=== PATIENT | female | born 1960 | race Caucasian/White ===

== ENCOUNTER 2019-12-22 16:43 | Emergency (ER) | payer MEDICARE, OTHER ==
[2019-12-22] MEDS ORDERED: Sodium Chloride 0.9% 10 ML Syringe FLUSH PRN (17:14)
--- NOTE | 2019-12-22 17:58 | CR ---
Chest: Portable view of the chest was obtained. Comparison: No prior chest imaging. Heart is enlarged. Pulmonary vessels are mildly congested. Lungs otherwise are clear. Bony structures are grossly intact. Impression: 1. Findings suspicious for mild CHF. Diagnostic code #3 This report was dictated in MDT
[2019-12-22] MEDS ORDERED: Furosemide 40 MG/4 ML VIAL IVPUSH ONE (18:00)
--- NOTE | 2019-12-22 18:30 | EDM.PDOC ---
ED HPI GENERAL MEDICAL PROBLEM - General Chief Complaint: Cardiovascular Problem Stated Complaint: SWOLLEN ANKLES Time Seen by Provider: 12/22/19 16:54 Source of Information: Reports: Patient, RN Notes Reviewed - History of Present Illness INITIAL COMMENTS - FREE TEXT/NARRATIVE: 59 yr old female comes in with bilat leg edema that first started about a week ago. She has not had this happen in the past. No chest pain. Mild dyspnea with exertion the last few days. No cough, fever or chills. No abd pain, nausea or vomtiing. she does have hx of Htn. Right Hip Pain Score (Numeric/FACES): 8 - Related Data Allergies Allergy/AdvReac Type Severity Reaction Status Date / Time acetaminophen [From Vicodin] Allergy Severe Airway Verified 12/22/19 17:00 Tightness hydrocodone [From Vicodin] Allergy Severe Airway Verified 12/22/19 17:00 Tightness simvastatin [From Zocor] Allergy Severe Swelling Verified 12/22/19 17:00 sulfamethoxazole Allergy Severe Nausea Verified 12/22/19 16:59 [From Bactrim] trimethoprim [From Bactrim] Allergy Severe Nausea Verified 12/22/19 16:59 Home Meds: Home Meds Furosemide 40 mg PO DAILY #20 tablet 12/22/19 [Rx] Lisinopril/Hydrochlorothiazide [Lisinopril-Hctz 10-12.5 mg Tab] 10 - 12.5 mg PO DAILY 12/22/19 [History] Metoprolol Succinate [Toprol XL] 25 mg PO DAILY 12/22/19 [History] Omeprazole 20 mg PO DAILY 12/22/19 [History] Pravastatin [Pravachol] 20 mg PO DAILY 12/22/19 [History] metFORMIN [Glucophage] 500 mg PO DAILY 12/22/19 [History] Past Medical History Cardiovascular History: Reports: High Cholesterol, Hypertension 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 History: Reports: GERD 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: 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 Neurological History: Reports: Vertigo Endocrine/Metabolic History: Reports: Other (See Below) Other Endocrine/Metabolic History: pre diabetic - Infectious Disease History Infectious Disease History: Reports: Chicken Pox - Past Surgical History GI Surgical History: Reports: Cholecystectomy Female Surgical History: Reports: Hysterectomy Social & Family History - Tobacco Use Smoking Status *Q: Never Smoker - Caffeine Use Caffeine Use: Reports: Coffee - Recreational Drug Use Recreational Drug Use: No ED ROS GENERAL - Review of Systems Review Of Systems: See Below Constitutional: Denies: Fever, Chills, Diaphoresis HEENT: Reports: No Symptoms Respiratory: Reports: Shortness of Breath. Denies: Cough Cardiovascular: Reports: Edema. Denies: Chest Pain Endocrine: Reports: Fatigue GI/Abdominal: Denies: Abdominal Pain, Nausea, Vomiting Musculoskeletal: Denies: Shoulder Pain, Arm Pain, Back Pain Skin: Reports: No Symptoms Neurological: Reports: No Symptoms ED EXAM, GENERAL - Physical Exam Exam: See Below General Appearance: Alert, No Apparent Distress Head: Atraumatic Neck: Supple Respiratory/Chest: No Respiratory Distress, Lungs Clear, Normal Breath Sounds. No: Rales, Rhonchi, Wheezing Cardiovascular: Regular Rate, Rhythm GI/Abdominal: Soft, Non-Tender Extremities: Pedal Edema (mild bilat). No: Leg Pain, Increased Warmth, Redness Neurological: Alert, Oriented, No Motor/Sensory Deficits Skin Exam: Warm, Dry, Normal Color EKG INTERPRETATION EKG Date: 12/22/19 Rhythm: NSR [place]: Normal P-Wave: Present QRS: Normal ST-T: Normal Course - Vital Signs Last Recorded V/S: Last Vital Signs Temp 98.1 F 12/22/19 17:05 Pulse 76 12/22/19 17:05 Resp 20 12/22/19 17:05 BP 140/80 12/22/19 17:05 Pulse Ox 98 12/22/19 17:05 - Orders/Labs/Meds Orders: Active Orders 24 hr Category Date Time Status EKG 12 Lead [EKG Documentation Completion] [RC] STAT Care 12/22/19 17:15 Active Peripheral IV Care [RC] . DIRECTED Care 12/22/19 17:14 Active Sodium Chloride 0.9% [Saline Flush] Med 12/22/19 17:14 Active 10 ml FLUSH ASDIRECTED PRN Peripheral IV Insertion Adult [OM.PC] Stat Oth 12/22/19 17:14 Ordered Medication Orders Sodium Chloride (Saline Flush) 10 ml FLUSH ASDIRECTED PRN PRN Reason: Keep Vein Open Last Admin: 12/22/19 17:48 Dose: 10 ml Documented by: YAEL Labs: Laboratory Tests 12/22/19 12/22/19 12/22/19 Range/Units 17:30 17:30 17:30 WBC 8.40 (3.98-10.04) K/mm3 RBC 4.69 (3.98-5.22) M/mm3 Hgb 13.8 (11.2-15.7) gm/dl Hct 43.1 (34.1-44.9) % MCV 91.9 (79.4-94.8) fl MCH 29.4 (25.6-32.2) pg MCHC 32.0 L (32.2-35.5) g/dl RDW Std Deviation 42.8 (36.4-46.3) fL Plt Count 265 (182-369) K/mm3 MPV 10.3 (9.4-12.3) fl Neut % (Auto) 73.5 H (34.0-71.1) % Lymph % (Auto) 18.3 L (19.3-51.7) % [place] % (Auto) 6.4 (4.7-12.5) % Eos % (Auto) 1.3 (0.7-5.8) Baso % (Auto) 0.4 (0.1-1.2) % Neut # (Auto) 6.17 H (1.56-6.13) K/mm3 Lymph # (Auto) 1.54 (1.18-3.74) K/mm3 [place] # (Auto) 0.54 H (0.24-0.36) K/mm3 Eos # (Auto) 0.11 (0.04-0.36) K/mm3 Baso # (Auto) 0.03 (0.01-0.08) K/mm3 Sodium 140 (136-145) mEq/L Potassium 3.5 (3.5-5.1) mEq/L Chloride 102 (98-107) mEq/L Carbon Dioxide 26 (21-32) mEq/L Anion Gap 15.5 H (5-15) BUN 14 (7-18) mg/dL Creatinine 0.9 (0.55-1.02) mg/dL Est Cr Clr Drug Dosing 52.57 mL/min Estimated GFR (MDRD) > 60 (>60) mL/min BUN/Creatinine Ratio 15.6 (14-18) Glucose 113 H (74-106) mg/dL Calcium 9.4 (8.5-10.1) mg/dL Total Bilirubin 0.4 (0.2-1.0) mg/dL AST 17 (15-37) U/L ALT 31 (14-59) U/L Alkaline Phosphatase 81 (46-116) U/L NT-Pro-B Natriuret Pep 227 H (0-125) pg/mL Total Protein 7.7 (6.4-8.2) g/dl Albumin 3.8 (3.4-5.0) g/dl Globulin 3.9 gm/dL Albumin/Globulin Ratio 1.0 (1-2) Meds: Medications Generic Name Dose Route Start Last Admin Trade Name Freq PRN Reason Stop Dose Admin Sodium Chloride 10 ml 12/22/19 17:14 12/22/19 17:48 Saline Flush FLUSH 10 ml ASDIRECTED PRN Administration Keep Vein Open Discontinued Medications Generic Name Dose Route Start Last Admin Trade Name Freq PRN Reason Stop Dose Admin Furosemide 40 mg 12/22/19 18:00 12/22/19 18:08 Lasix IVPUSH 12/22/19 18:01 40 mg NOW ONE Administration - Re-Assessments/Exams Free Text/Narrative Re-Assessment/Exam: 12/22/19 19:04 CXR does show mild cardiomegally and mild pul omari. Have given lasix 40 mg IV. She has already voided several times. Sats are good. She states she "feels better already". Discharge instr. as documented. Departure - Departure Time of Disposition: 18:41 Disposition: Home, Self-Care 01 Condition: Fair Clinical Impression: Fluid retention Congestive heart failure (CHF) Qualifiers: Heart failure chronicity: acute Prescriptions: Furosemide 40 mg PO DAILY #20 tablet Instructions: Heart Failure, Self Care, [id number] Referrals: Maylin Grace MD [Primary Care Provider] - Forms: ED Department Discharge Additional Instructions: You have been given lasix or furosemide 40 mg IV here in the ED. That is your full dosage for today. Furosemide 40 mg Q AM for now. Prescription has been sent to [facility]. Once your leg edema is gone it may be reasonable to go to 20 mg Q AM, time will tell what will be an appropriate maintenance dosage for you. See Dr Grace [facility] in about about 5 to 7 days, call for appt. Keep a daily weight log. Return to ED as needed if symptoms worsening in any way. Sepsis Event Note (ED) - Evaluation Sepsis Screening Result: No Definite Risk - Focused Exam Vital Signs: Vital Signs Temp Pulse Resp BP Pulse Ox 12/22/19 17:05 98.1 F 76 20 140/80 98 - My Orders Last 24 Hours: My Active Orders 12/22/19 17:14 Peripheral IV Care [RC] . DIRECTED Sodium Chloride 0.9% [Saline Flush] 10 ml FLUSH ASDIRECTED PRN Peripheral IV Insertion Adult [OM.PC] Stat 12/22/19 17:15 EKG 12 Lead [EKG Documentation Completion] [RC] STAT - Assessment/Plan Last 24 Hours: My Active Orders 12/22/19 17:14 Peripheral IV Care [RC] . DIRECTED Sodium Chloride 0.9% [Saline Flush] 10 ml FLUSH ASDIRECTED PRN Peripheral IV Insertion Adult [OM.PC] Stat 12/22/19 17:15 EKG 12 Lead [EKG Documentation Completion] [RC] STAT
== END 2019-12-22 19:00 | disposition home or self-care (01) ==
LOC: JD.ED 16:43
DX: I11.0 Hypertensive heart disease with heart failure (principal); I50.9 Heart failure, unspecified; E78.00 Pure hypercholesterolemia, unspecified; K21.9 Gastro-esophageal reflux disease without esophagitis; Z88.6 Allergy status to analgesic agent; Z88.5 Allergy status to narcotic agent; Z88.8 Allergy status to other drugs, medicaments and biological substances; Z88.2 Allergy status to sulfonamides; Z88.1 Allergy status to other antibiotic agents; Z79.899 Other long term (current) drug therapy
CPT/HCPCS: 36415; 71045; 71045-26; 80053; 83880; 85025; 93005; 93010; 96374; 99284; 99285-25; J1940

== ENCOUNTER 2019-12-24 16:50 | Emergency (ER) | payer MEDICARE, OTHER ==
[2019-12-24] MEDS ORDERED: Ketorolac 30 MG/ML SDV IVPUSH ONE (17:18)
[2019-12-24] MEDS ORDERED: Metoclopramide 10 MG/2 ML SDV IVPUSH ONE (17:18)
[2019-12-24] MEDS ORDERED: Sodium Chloride 0.9% 10 ML Syringe FLUSH PRN (17:18)
[2019-12-24] MEDS ORDERED: diphenhydrAMINE 50 MG/ML SDV IVPUSH ONE (17:18)
[2019-12-24] MEDS ORDERED: Sodium Chloride 0.9% 1,000 ML IV ONE (17:18)
--- NOTE | 2019-12-24 17:34 | EDM.PDOC ---
ED HPI GENERAL MEDICAL PROBLEM - General Chief Complaint: General Stated Complaint: HEADACHE Time Seen by Provider: 12/24/19 17:09 Source of Information: Reports: Patient, Old Records, RN Notes Reviewed History Limitations: Reports: No Limitations - History of Present Illness INITIAL COMMENTS - FREE TEXT/NARRATIVE: Patient is a 59-year-old female who presents to the ED for the evaluation of her generalized feelings of being unwell. She notes that she was seen in this ER a few nights ago, and was found to have slight heart failure and started on 40 mg of Lasix daily. She states she has been taking this, roughly 3 doses since her discharge, she states everything was going well this morning, but this afternoon she just felt generally unwell, she cannot really put a finger on what is causing her the most issues, but states she does have a dull headache, to the frontal portion of her head off and on. She did take some Tylenol for this, but nothing seems to really be making it better. She does note that the swelling in her legs seems to be going down, and she did get an appointment with her primary care doctor for next week for a recheck and reevaluation. Patient's not having any chest pain, shortness of breath, nausea/vomiting/diarrhea, she is not having any sort of sense of impending doom, or any sort of heart palpitations that she can account for. She just feels off. Headache Pain Score (Numeric/FACES): 5 - Related Data Allergies Allergy/AdvReac Type Severity Reaction Status Date / Time acetaminophen [From Vicodin] Allergy Severe Airway Verified 12/24/19 17:13 Tightness hydrocodone [From Vicodin] Allergy Severe Airway Verified 12/24/19 17:13 Tightness simvastatin [From Zocor] Allergy Severe Swelling Verified 12/24/19 17:13 sulfamethoxazole Allergy Severe Nausea Verified 12/24/19 17:13 [From Bactrim] trimethoprim [From Bactrim] Allergy Severe Nausea Verified 12/24/19 17:13 Home Meds: Home Meds Furosemide 40 mg PO DAILY #20 tablet 12/22/19 [Rx] Lisinopril/Hydrochlorothiazide [Lisinopril-Hctz 10-12.5 mg Tab] 10 - 12.5 mg PO DAILY 12/22/19 [History] Metoprolol Succinate [Toprol XL] 25 mg PO DAILY 12/22/19 [History] Omeprazole 20 mg PO DAILY 12/22/19 [History] Pravastatin [Pravachol] 20 mg PO DAILY 12/22/19 [History] metFORMIN [Glucophage] 500 mg PO DAILY 12/22/19 [History] Aspirin [Ecotrin EC] 81 mg PO DAILY 12/24/19 [History] Calcium Carb/Vitamin D3/Vit K1 [Calcium + D Soft Chewable Tab] 1 tab PO DAILY 12/24/19 [History] Docusate Sodium [Colace] 50 mg PO DAILY 12/24/19 [History] Past Medical History Cardiovascular History: Reports: High Cholesterol, Hypertension 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 History: Reports: GERD 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 ED EXAM, GENERAL - Physical Exam Exam: See Below Exam Limited By: No Limitations General Appearance: Alert, WD/WN, No Apparent Distress Eye Exam: Bilateral Eye: EOMI, Normal Inspection, PERRL Ears: Normal External Exam Throat/Mouth: Normal Inspection, Normal Lips, Normal Teeth, Normal Gums, Normal Oropharynx, Normal Voice, No Airway Compromise Head: Atraumatic, Normocephalic Neck: Normal Inspection Respiratory/Chest: No Respiratory Distress, Lungs Clear, Normal Breath Sounds, Chest Non-Tender, Decreased Breath Sounds Cardiovascular: Normal Peripheral Pulses, Regular Rate, Rhythm, No Murmur, Other (1+ bilateral peripheral edema) Peripheral Pulses: 2+: Radial (L), Radial (R), Dorsalis Pedis (L), Dorsalis Pedis (R) GI/Abdominal: Normal Bowel Sounds, Soft, Non-Tender, No Distention, No Mass Extremities: Normal Inspection, Normal Capillary Refill, Pedal Edema (1+ bilateral peripheral edema) Neurological: Alert, Oriented, Normal Cognition, No Motor/Sensory Deficits Psychiatric: Normal Affect, Normal Mood Skin Exam: Warm, Dry, Intact, Normal Color, No Rash Course - Vital Signs Last Recorded V/S: Last Vital Signs Temp 96.8 F L 12/24/19 17:09 Pulse 76 12/24/19 17:09 Resp 18 12/24/19 17:09 BP 145/74 H 12/24/19 17:09 Pulse Ox 98 12/24/19 17:09 - Orders/Labs/Meds Orders: Active Orders 24 hr Category Date Time Status Peripheral IV Care [RC] . DIRECTED Care 12/24/19 17:19 Active Sodium Chloride 0.9% [Normal Saline] 1,000 ml Med 12/24/19 17:18 Active IV ASDIRECTED Sodium Chloride 0.9% [Saline Flush] Med 12/24/19 17:18 Active 10 ml FLUSH ASDIRECTED PRN Peripheral IV Insertion Adult [OM.PC] Routine Oth 12/24/19 17:19 Ordered Medication Orders Sodium Chloride (Normal Saline) 1,000 mls @ 150 mls/hr IV ASDIRECTED ONE Stop: 12/24/19 23:57 Last Admin: 12/24/19 17:34 Dose: 150 mls/hr Documented by: VADIM Sodium Chloride (Saline Flush) 10 ml FLUSH ASDIRECTED PRN PRN Reason: Keep Vein Open Last Admin: 12/24/19 17:36 Dose: 10 ml Documented by: VADIM Labs: Laboratory Tests 12/24/19 12/24/19 12/24/19 Range/Units 17:20 17:20 17:20 WBC 8.51 (3.98-10.04) K/mm3 RBC 4.91 (3.98-5.22) M/mm3 Hgb 14.4 (11.2-15.7) gm/dl Hct 44.0 (34.1-44.9) % MCV 89.6 (79.4-94.8) fl MCH 29.3 (25.6-32.2) pg MCHC 32.7 (32.2-35.5) g/dl RDW Std Deviation 41.4 (36.4-46.3) fL Plt Count 276 (182-369) K/mm3 MPV 10.3 (9.4-12.3) fl Neut % (Auto) 75.5 H (34.0-71.1) % Lymph % (Auto) 15.9 L (19.3-51.7) % [place] % (Auto) 7.1 (4.7-12.5) % Eos % (Auto) 1.1 (0.7-5.8) Baso % (Auto) 0.2 (0.1-1.2) % Neut # (Auto) 6.43 H (1.56-6.13) K/mm3 Lymph # (Auto) 1.35 (1.18-3.74) K/mm3 [place] # (Auto) 0.60 H (0.24-0.36) K/mm3 Eos # (Auto) 0.09 (0.04-0.36) K/mm3 Baso # (Auto) 0.02 (0.01-0.08) K/mm3 Sodium 132 L (136-145) mEq/L Potassium 3.3 L (3.5-5.1) mEq/L Chloride 93 L (98-107) mEq/L Carbon Dioxide 28 (21-32) mEq/L Anion Gap 14.3 (5-15) BUN 15 (7-18) mg/dL Creatinine 1.0 (0.55-1.02) mg/dL Est Cr Clr Drug Dosing 47.32 mL/min Estimated GFR (MDRD) 57 (>60) mL/min BUN/Creatinine Ratio 15.0 (14-18) Glucose 127 H (74-106) mg/dL Calcium 9.5 (8.5-10.1) mg/dL Magnesium 1.9 (1.8-2.4) mg/dl Total Bilirubin 0.5 (0.2-1.0) mg/dL AST 28 (15-37) U/L ALT 33 (14-59) U/L Alkaline Phosphatase 82 (46-116) U/L Total Protein 8.2 (6.4-8.2) g/dl Albumin 4.0 (3.4-5.0) g/dl Globulin 4.2 gm/dL Albumin/Globulin Ratio 1.0 (1-2) Meds: Medications Generic Name Dose Route Start Last Admin Trade Name Freq PRN Reason Stop Dose Admin Sodium Chloride 1,000 mls @ 150 mls/hr 12/24/19 17:18 12/24/19 17:34 Normal Saline IV 12/24/19 23:57 150 mls/hr ASDIRECTED ONE Administration Sodium Chloride 10 ml 12/24/19 17:18 12/24/19 17:36 Saline Flush FLUSH 10 ml ASDIRECTED PRN Administration Keep Vein Open Discontinued Medications Generic Name Dose Route Start Last Admin Trade Name Jessica PRN Reason Stop Dose Admin Diphenhydramine HCl 25 mg 12/24/19 17:18 12/24/19 17:35 Benadryl IVPUSH 12/24/19 17:19 25 mg ONETIME ONE Administration Ketorolac Tromethamine 30 mg 12/24/19 17:18 12/24/19 17:35 Toradol IVPUSH 12/24/19 17:19 30 mg ONETIME ONE Administration Metoclopramide HCl 10 mg 12/24/19 17:18 12/24/19 17:34 Reglan IVPUSH 12/24/19 17:19 10 mg ONETIME ONE Administration - Re-Assessments/Exams Free Text/Narrative Re-Assessment/Exam: 12/24/19 17:34 Patient presents to the ED for evaluation of her generalized feelings of being unwell and a headache. She will get some medications for her headache, and has some basic labs obtained, likely she could have a potassium abnormality due to the Lasix. We will see what the labs show, or otherwise slight dehydration from the Lasix. 12/24/19 18:15 Patient's labs have resulted, CBC is within normal limits, metabolic panel demonstrates a mildly low sodium of 132, mildly low potassium of 3.3, creatinine within normal limits at 1.0, and GFR at 57. She does appear to be slightly dehydrated as compared to her labs done 2 days ago. We will have her take only 20 mg Lasix as needed for increased swelling on her legs. Patient is aware of this and verbalizes understanding, she states she has been trying to watch her salt intake, and I told her to try to increase her fluid intake to include Gatorade and or Powerade, not straight water. She again verbalized understanding. She will likely need echocardiogram, and I will suggest this in her discharge instructions. Departure - Departure Time of Disposition: 18:17 Disposition: Home, Self-Care 01 Condition: Good Clinical Impression: Low serum potassium level, Dehydration - Discharge Information *PRESCRIPTION DRUG MONITORING PROGRAM REVIEWED*: No *COPY OF PRESCRIPTION DRUG MONITORING REPORT IN PATIENT SLY: No Instructions: Dehydration, Adult, [id number] Referrals: Maylin Grace MD [Primary Care Provider] - Forms: ED Department Discharge Additional Instructions: You were evaluated in the ER today for your generalized feelings of being unwell. Your laboratory evaluation demonstrates a mildly low potassium level, mildly low sodium level, and is suggestive of some slight dehydration. This may be due to the Lasix that you are currently taking. Highly recommend that you only take 20 mg or 1/2 tablet as needed for further swelling on your legs, rather than taking 40 mg daily. Please continue to do this until you are seen by Dr. Grace and are directed otherwise. Highly recommend you talk with Dr. Grace about getting an echocardiogram, so y ou can monitor your heart function to make sure that the valves are working appropriately. Please try to monitor your salt intake, if you are drinking fluids, try to include fluids that contain electrolytes like Gatorade or Powerade. You may try the sugar-free version if you are having issues with your blood sugar. You stated that you already have some compression stockings on the way, please use these to help relieve some of the swelling on her legs, please try to elevate your legs as much as possible when you are resting to further relieve some of the swelling on your legs. Please return to the ED at any time if her symptoms change or worsen. Sepsis Event Note (ED) - Evaluation Sepsis Screening Result: No Definite Risk - Focused Exam Vital Signs: Vital Signs Temp Pulse Resp BP Pulse Ox 12/24/19 17:09 96.8 F L 76 18 145/74 H 98 - My Orders Last 24 Hours: My Active Orders 12/24/19 17:18 Sodium Chloride 0.9% [Normal Saline] 1,000 ml IV ASDIRECTED Sodium Chloride 0.9% [Saline Flush] 10 ml FLUSH ASDIRECTED PRN 12/24/19 17:19 Peripheral IV Care [RC] . DIRECTED Peripheral IV Insertion Adult [OM.PC] Routine - Assessment/Plan Last 24 Hours: My Active Orders 12/24/19 17:18 Sodium Chloride 0.9% [Normal Saline] 1,000 ml IV ASDIRECTED Sodium Chloride 0.9% [Saline Flush] 10 ml FLUSH ASDIRECTED PRN 12/24/19 17:19 Peripheral IV Care [RC] . DIRECTED Peripheral IV Insertion Adult [OM.PC] Routine
== END 2019-12-24 18:42 | disposition home or self-care (01) ==
LOC: JD.ED 16:50
DX: E87.6 Hypokalemia (principal); E86.0 Dehydration; E78.00 Pure hypercholesterolemia, unspecified; I10 Essential (primary) hypertension; K21.9 Gastro-esophageal reflux disease without esophagitis; Z88.6 Allergy status to analgesic agent; Z88.5 Allergy status to narcotic agent; Z88.8 Allergy status to other drugs, medicaments and biological substances; Z88.2 Allergy status to sulfonamides; Z88.1 Allergy status to other antibiotic agents; Z79.899 Other long term (current) drug therapy; Z79.82 Long term (current) use of aspirin
CPT/HCPCS: 36415; 80053; 83735; 85025; 96361; 96374; 96375; 99284; J1200; J1885; J2765; J7030

== ENCOUNTER 2020-12-26 08:39 | Emergency (ER) | payer MEDICARE, OTHER ==
--- NOTE | 2020-12-26 09:39 | EDM.PDOC ---
ED HPI GENERAL MEDICAL PROBLEM - General Chief Complaint: Headache Stated Complaint: HEADACHE/NECK PAIN Time Seen by Provider: 12/26/20 09:15 Source of Information: Reports: Patient History Limitations: Reports: No Limitations - History of Present Illness INITIAL COMMENTS - FREE TEXT/NARRATIVE: 60-year-old female presents the emergency department today with complaints of a headache that started last evening. She states that the headache is located in the left occipital area of her head. Nothing makes it worse or better. She states that last evening before bed she took 2 Aleve's and woke up at about 3 this morning and the headache was still present. At that time she took 2 baby aspirin as she was concerned she may be having a stroke. She denies any recent fever, chills, nausea, vomiting or diarrhea. She denies any cough or shortness of breath. She denies any blurred vision or double vision or ringing in her ears. She denies photophobia or phonophobia. She does not see any auras. She states she does get occasional headaches however it is more frontal. She states she does have a history of congestive heart failure. She does not smoke cigarettes, she consumes alcohol occasionally and she denies any recreational drug use. 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 Occipital Head Pain Score (Numeric/FACES): 8 - Related Data Allergies Allergy/AdvReac Type Severity Reaction Status Date / Time acetaminophen [From Vicodin] Allergy Severe Airway Verified 12/26/20 09:24 Tightness hydrocodone [From Vicodin] Allergy Severe Airway Verified 12/26/20 09:24 Tightness simvastatin [From Zocor] Allergy Severe Swelling Verified 12/26/20 09:24 sulfamethoxazole Allergy Severe Nausea Verified 12/26/20 09:24 [From Bactrim] trimethoprim [From Bactrim] Allergy Severe Nausea Verified 12/26/20 09:24 Home Meds: Home Meds Furosemide 40 mg PO DAILY #20 tablet 12/22/19 [Rx] Lisinopril/Hydrochlorothiazide [Lisinopril-Hctz 10-12.5 mg Tab] 10 - 12.5 mg PO DAILY 12/22/19 [History] Omeprazole 20 mg PO DAILY 12/22/19 [History] metFORMIN [Glucophage] 500 mg PO DAILY 12/22/19 [History] Aspirin [Ecotrin EC] 81 mg PO DAILY 12/24/19 [History] Calcium Carb/Vitamin D3/Vit K1 [Calcium + D Soft Chewable Tab] 1 tab PO DAILY 12/24/19 [History] Docusate Sodium [Colace] 50 mg PO DAILY 12/24/19 [History] atorvaSTATin [Lipitor] 40 mg PO DAILY 12/26/20 [History] carvediloL [Carvedilol] 3.125 mg PO DAILY 12/26/20 [History] Past Medical History Cardiovascular History: Reports: High Cholesterol, Hypertension 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 History: Reports: GERD [employer]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 - Physical Exam Exam: See Below Exam Limited By: No Limitations General Appearance: Alert, WD/WN, No Apparent Distress Eye Exam: Bilateral Eye: EOMI, PERRL Ears: Normal External Exam, Hearing Grossly Normal Nose: Normal Inspection Throat/Mouth: Normal Inspection, Normal Lips, Normal Voice, No Airway Compromise Head Exam: Atraumatic, Normocephalic Neck: Normal Inspection, Supple, Non-Tender, Full Range of Motion Respiratory/Chest: No Respiratory Distress, Lungs Clear, Normal Breath Sounds, No Accessory Muscle Use, Chest Non-Tender Cardiovascular: Normal Peripheral Pulses, Regular Rate, Rhythm, No Edema, No Murmur GI/Abdominal: Normal Bowel Sounds, Soft, Non-Tender, No Distention (Female) Exam: Deferred Rectal (Female) Exam: Deferred Neuro Exam (Abbreviated): Alert, Oriented, Normal Cognition Back Exam: Normal Inspection Extremities: Normal Inspection, Normal Range of Motion, Non-Tender, No Pedal Edema, Normal Capillary Refill Psychiatric: Normal Affect, Normal Mood Skin Exam: Warm, Dry, Intact, Normal Color, No Rash Course - Vital Signs Text/Narrative:: As stated above, patient presents with headache to the left occipital area. She states this is unusual for her as she usually has frontal headaches and she has never had a headache like this before. At the time of my exam the patient states the headache has resolved however she is concerned that she may be having a stroke. She is hemodynamically stable. Physical exam is unremarkable as well as full neuro exam. I have ordered a CT of the head without contrast. Last Recorded V/S: Last Vital Signs Temp 97.6 F 12/26/20 09:15 Pulse 66 12/26/20 09:15 Resp 18 12/26/20 09:15 BP 135/86 12/26/20 09:15 Pulse Ox 99 12/26/20 09:15 - Re-Assessments/Exams Free Text/Narrative Re-Assessment/Exam: 12/26/20 10:[address] of the head: 1. Several findings which are believed to be incidental as described above. 2. No acute intracranial abnormality is seen on noncontrast head CT. Departure - Departure Time of Disposition: 10:37 Disposition: Home, Self-Care 01 Condition: Good Clinical Impression: Tension-type headache - Discharge Information Instructions: Pain Medicine Instructions, [id number], Tension Headache, Adult, [id number] Referrals: Maylin Grace MD [Primary Care Provider] - Forms: ED Department Discharge Additional Instructions: You were seen in the emergency department today with complaints of a headache to the back your head on the left side. Full physical exam was unremarkable. CT scan of the head was unremarkable. I suspect the headache pain is likely due to tension in your neck as you stated it was more noticeable when turning her head to the left. Recommend that you take Aleve 2 tabs every 12 hours for the next 48 hours for pain and inflammation. Be sure to take this medication with food. You may take Tylenol 650 mg every 4 hours as needed for headache. Also, as discussed mention the discomfort to your physical therapist next time you are evaluated by them. Should your condition worsen or change, do not hesitate returning to the emergency department. Otherwise follow-up with your primary care provider. Sepsis Event Note (ED) - Evaluation Sepsis Screening Result: No Definite Risk - Focused Exam Vital Signs: Vital Signs Temp Pulse Resp BP Pulse Ox 12/26/20 09:15 97.6 F 66 18 135/86 99
--- NOTE | 2020-12-26 09:56 | CT ---
Head CT Technique: Multiple axial sections through the brain were obtained. Intravenous contrast was not utilized. Reconstructed coronal and sagittal images were obtained. Comparison: Prior head CT study of 09/09/10. Findings: Ventricles along with basal cisterns and sulci over the convexities are within normal limits for the patient's age. No abnormal parenchymal densities are seen. No evidence of intracranial hemorrhage is seen. No midline shift or mass-effect is seen. Bone window settings were reviewed. Mild hyperostosis interna frontalis is seen which is a normal variant. Visualized paranasal sinuses show minimal mucosal thickening. Mastoid sinuses show nothing acute. No acute calvarial abnormality is appreciated. Impression: 1. Several findings which are believed to be incidental as described above. 2. No acute intracranial abnormality is seen on noncontrast head CT. Diagnostic code #2
== END 2020-12-26 10:52 | disposition home or self-care (01) ==
LOC: JD.ED 08:39
DX: G44.209 Tension-type headache, unspecified, not intractable (principal); E78.00 Pure hypercholesterolemia, unspecified; I10 Essential (primary) hypertension; K21.9 Gastro-esophageal reflux disease without esophagitis; Z79.82 Long term (current) use of aspirin; Z79.84 Long term (current) use of oral hypoglycemic drugs; Z88.5 Allergy status to narcotic agent; Z88.1 Allergy status to other antibiotic agents; Z79.899 Other long term (current) drug therapy
CPT/HCPCS: 70450; 70450-26; 99283; 99284-25

== ENCOUNTER 2021-04-22 10:53 | Emergency (ER) | payer MEDICARE, OTHER ==
[2021-04-22] MEDS ORDERED: Sodium Chloride 0.9% 10 ML Syringe FLUSH PRN (11:20)
[2021-04-22] MEDS ORDERED: Ondansetron 4 MG/2 ML SDV IVPUSH ONE (11:22)
[2021-04-22] MEDS ORDERED: Sodium Chloride 0.9% 1,000 ML IV ONE (11:22)
--- NOTE | 2021-04-22 11:36 | EDM.PDOC ---
ED HPI GENERAL MEDICAL PROBLEM - General Chief Complaint: General Stated Complaint: POSS DEHYDRATION Time Seen by Provider: 04/22/21 11:18 Source of Information: Reports: Patient, RN Notes Reviewed History Limitations: Reports: No Limitations - History of Present Illness INITIAL COMMENTS - FREE TEXT/NARRATIVE: Patient is a 60-year-old female who presents to the ER for her ongoing illness. Patient states she has been ill for about 3 weeks now. She states that she has been to the walk-in clinic twice for this illness, once on March 31, and 1 last week Friday, April 18, 2021. She states at the Friday visit, she got azithromycin, and some cough medication. She states that this seemed to help more than anything. Patient states she does not think she necessarily has a fever, but she feels pretty sweaty or diaphoretic she began to feel under the weather yesterday again, with cough, shortness of breath, 3 episodes of vomiting, no diarrhea. Patient states that she was drinking water and Gatorade yesterday to try to keep yourself hydrated. States she does have a history of CHF, and dehydration in the past and states that she feels like she could be possibly dehydrated. She does have a somewhat raspy voice as well and this concerns her. - Related Data Allergies Allergy/AdvReac Type Severity Reaction Status Date / Time acetaminophen [From Vicodin] Allergy Severe Airway Verified 04/22/21 11:22 Tightness hydrocodone [From Vicodin] Allergy Severe Airway Verified 04/22/21 11:22 Tightness simvastatin [From Zocor] Allergy Severe Swelling Verified 04/22/21 11:22 sulfamethoxazole Allergy Severe Nausea Verified 04/22/21 11:22 [From Bactrim] trimethoprim [From Bactrim] Allergy Severe Nausea Verified 04/22/21 11:22 Home Meds: Home Meds Furosemide 40 mg PO DAILY #20 tablet 12/22/19 [Rx] Lisinopril/Hydrochlorothiazide [Lisinopril-Hctz 10-12.5 mg Tab] 10 - 12.5 mg PO DAILY 12/22/19 [History] Omeprazole 20 mg PO DAILY 12/22/19 [History] metFORMIN [Glucophage] 500 mg PO DAILY 12/22/19 [History] Aspirin [Ecotrin EC] 81 mg PO DAILY 12/24/19 [History] Calcium Carb/Vitamin D3/Vit K1 [Calcium + D Soft Chewable Tab] 1 tab PO DAILY 12/24/19 [History] Docusate Sodium [Colace] 50 mg PO DAILY 12/24/19 [History] atorvaSTATin [Lipitor] 40 mg PO DAILY 12/26/20 [History] carvediloL [Carvedilol] 3.125 mg PO DAILY 12/26/20 [History] Past Medical History Cardiovascular History: Reports: Heart Failure, High Cholesterol, Hypertension 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 History: Reports: GERD 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: 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 Neurological History: Reports: Vertigo Endocrine/Metabolic History: Reports: Diabetes, Type II Other Endocrine/Metabolic History: pre diabetic - Infectious Disease History Infectious Disease History: Reports: Chicken Pox - Past Surgical History GI Surgical History: Reports: Cholecystectomy Female Surgical History: Reports: Hysterectomy Social & Family History - Tobacco Use Tobacco Use Status *Q: Never Tobacco User Second Hand Smoke Exposure: No - Caffeine Use Caffeine Use: Reports: Coffee - Recreational Drug Use Recreational Drug Use: No ED ROS GENERAL - Review of Systems Review Of Systems: Comprehensive ROS is negative, except as noted in HPI. ED EXAM, GENERAL - Physical Exam Exam: See Below Exam Limited By: No Limitations General Appearance: Alert, WD/WN, No Apparent Distress Respiratory/Chest: No Respiratory Distress, Lungs Clear, Normal Breath Sounds, No Accessory Muscle Use, Chest Non-Tender Cardiovascular: Normal Peripheral Pulses, Regular Rate, Rhythm, No Edema GI/Abdominal: Normal Bowel Sounds, Soft, Non-Tender, No Distention, No Mass Extremities: Normal Inspection, Normal Capillary Refill Neurological: Alert, Oriented, Normal Cognition, No Motor/Sensory Deficits Psychiatric: Normal Affect, Normal Mood Skin Exam: Warm, Intact, Normal Color, No Rash, Diaphoretic (generalized-states this is what has been going on) Course - Vital Signs Last Recorded V/S: Last Vital Signs Temp 96.9 F 04/22/21 11:20 Pulse 84 04/22/21 11:20 Resp 18 04/22/21 11:20 BP 142/71 H 04/22/21 11:20 Pulse Ox 95 04/22/21 11:20 - Orders/Labs/Meds Orders: Active Orders 24 hr Category Date Time Status Peripheral IV Care [RC] . DIRECTED Care 04/22/21 11:21 Ordered Vital Signs [RC] Q15M Care 04/22/21 12:15 Ordered Chest 1V Frontal [CR] Stat Exams 04/22/21 11:23 Ordered EPINEPHrine [Adrenalin] Med 04/22/21 12:15 Active 0.3 mg IM ASDIRECTED PRN Famotidine [Pepcid] Med 04/22/21 12:15 Active 20 mg IVPUSH ASDIRECTED PRN Sodium Chloride 0.9% [Saline Flush] Med 04/22/21 11:20 Active 10 ml FLUSH ASDIRECTED PRN Sodium Chloride 0.9% [Saline Flush] Med 04/22/21 12:15 Active 30 ml FLUSH ASDIRECTED diphenhydrAMINE [Benadryl] Med 04/22/21 12:15 Active 50 mg IVPUSH ASDIRECTED PRN methylPREDNISolone Sod Succ [Solu-MEDROL] Med 04/22/21 12:15 Active 125 mg IVPUSH ASDIRECTED PRN Peripheral IV Insertion Adult [OM.PC] Routine Oth 04/22/21 11:20 Ordered Medication Orders Diphenhydramine HCl (Diphenhydramine 50 Mg/Ml Sdv) 50 mg IVPUSH ASDIRECTED PRN PRN Reason: hypersensitivity reaction Epinephrine HCl (Epinephrine 1 Mg/Ml Sdv) 0.3 mg IM ASDIRECTED PRN PRN Reason: hypersensitivity reaction Famotidine (Famotidine 20 Mg/2 Ml Sdv) 20 mg IVPUSH ASDIRECTED PRN PRN Reason: hypersensitivity reaction Methylprednisolone Sodium Succinate (Methylprednisolone Sodium Succinate 125 Mg/2 Ml Sdv) 125 mg IVPUSH ASDIRECTED PRN PRN Reason: hypersensitivity reaction Sodium Chloride (Sodium Chloride 0.9% 10 Ml Syringe) 10 ml FLUSH ASDIRECTED PRN PRN Reason: Keep Vein Open Last Admin: 04/22/21 11:33 Dose: 10 ml Documented by: RICCI Sodium Chloride (Sodium Chloride 0.9% 10 Ml Syringe) 30 ml FLUSH ASDIRECTED NIGEL Labs: Laboratory Tests 04/22/21 04/22/21 04/22/21 Range/Units 11:10 11:23 11:40 WBC 5.69 (3.98-10.04) K/mm3 RBC 4.44 (3.98-5.22) M/mm3 Hgb 13.0 (11.2-15.7) gm/dl Hct 39.2 (34.1-44.9) % MCV 88.3 (79.4-94.8) fl MCH 29.3 (25.6-32.2) pg MCHC 33.2 (32.2-35.5) g/dl RDW Std Deviation 39.5 (36.4-46.3) fL Plt Count 196 D (182-369) K/mm3 MPV 10.2 (9.4-12.3) fl Neut % (Auto) 78.2 H (34.0-71.1) % Lymph % (Auto) 12.8 L (19.3-51.7) % [place] % (Auto) 8.1 (4.7-12.5) % Eos % (Auto) 0.5 L (0.7-5.8) Baso % (Auto) 0.2 (0.1-1.2) % Neut # (Auto) 4.45 (1.56-6.13) K/mm3 Lymph # (Auto) 0.73 L (1.18-3.74) K/mm3 [place] # (Auto) 0.46 H (0.24-0.36) K/mm3 Eos # (Auto) 0.03 L (0.04-0.36) K/mm3 Baso # (Auto) 0.01 (0.01-0.08) K/mm3 Sodium (136-145) mEq/L Potassium (3.5-5.1) mEq/L Chloride (98-107) mEq/L Carbon Dioxide (21-32) mEq/L Anion Gap (5-15) BUN (7-18) mg/dL Creatinine (0.55-1.02) mg/dL Est Cr Clr Drug Dosing mL/min Estimated GFR (MDRD) (>60) mL/min BUN/Creatinine Ratio (14-18) Glucose (70-99) mg/dL Calcium (8.5-10.1) mg/dL Magnesium (1.8-2.4) mg/dL Total Bilirubin (0.2-1.0) mg/dL AST (15-37) U/L ALT (14-59) U/L Alkaline Phosphatase (46-116) U/L C-Reactive Protein (<1.0) mg/dL Total Protein (6.4-8.2) g/dl Albumin (3.4-5.0) g/dl Globulin gm/dL Albumin/Globulin Ratio (1-2) Urine Color Other H (Yellow) Urine Appearance Clear (Clear) Urine pH 7.0 (5.0-8.0) Ur Specific [place] 1.015 (1.005-1.030) Urine Protein Negative (Negative) Urine Glucose (UA) Negative (Negative) Urine Ketones Negative (Negative) Urine Occult Blood 1+ H (Negative) Urine Nitrite Negative (Negative) Urine Bilirubin Negative (Negative) Urine Urobilinogen 0.2 (0.2-1.0) Ur Leukocyte Esterase Negative (Negative) Urine RBC 5-10 H (0-5) /hpf Urine WBC 0-5 (0-5) /hpf Ur Squamous Epith Cells 0-5 (0-5) /hpf Urine Bacteria Few (FEW) /hpf Urine Mucus Few (FEW) /hpf Influenza Type A RNA Negative (NEGATIVE) RSV RNA (INAAT) Negative (NEGATIVE) Influenza Type B RNA Negative (NEGATIVE) SARS-CoV-2 RNA (DEANGELO) Positive H (NEGATIVE) 04/22/21 Range/Units 11:40 WBC (3.98-10.04) K/mm3 RBC (3.98-5.22) M/mm3 Hgb (11.2-15.7) gm/dl Hct (34.1-44.9) % MCV (79.4-94.8) fl MCH (25.6-32.2) pg MCHC (32.2-35.5) g/dl RDW Std Deviation (36.4-46.3) fL Plt Count (182-369) K/mm3 MPV (9.4-12.3) fl Neut % (Auto) (34.0-71.1) % Lymph % (Auto) (19.3-51.7) % [place] % (Auto) (4.7-12.5) % Eos % (Auto) (0.7-5.8) Baso % (Auto) (0.1-1.2) % Neut # (Auto) (1.56-6.13) K/mm3 Lymph # (Auto) (1.18-3.74) K/mm3 [place] # (Auto) (0.24-0.36) K/mm3 Eos # (Auto) (0.04-0.36) K/mm3 Baso # (Auto) (0.01-0.08) K/mm3 Sodium 135 L (136-145) mEq/L Potassium 3.8 (3.5-5.1) mEq/L Chloride 99 (98-107) mEq/L Carbon Dioxide 26 (21-32) mEq/L Anion Gap 13.8 (5-15) BUN 8 (7-18) mg/dL Creatinine 0.8 (0.55-1.02) mg/dL Est Cr Clr Drug Dosing 58.41 mL/min Estimated GFR (MDRD) > 60 (>60) mL/min BUN/Creatinine Ratio 10.0 L (14-18) Glucose 124 H (70-99) mg/dL Calcium 9.1 (8.5-10.1) mg/dL Magnesium 2.2 (1.8-2.4) mg/dL Total Bilirubin 0.5 (0.2-1.0) mg/dL AST 31 (15-37) U/L ALT 45 (14-59) U/L Alkaline Phosphatase 70 (46-116) U/L C-Reactive Protein 7.5 H* (<1.0) mg/dL Total Protein 7.5 (6.4-8.2) g/dl Albumin 3.3 L (3.4-5.0) g/dl Globulin 4.2 gm/dL Albumin/Globulin Ratio 0.8 L (1-2) Urine Color (Yellow) Urine Appearance (Clear) Urine pH (5.0-8.0) Ur Specific [place] (1.005-1.030) Urine Protein (Negative) Urine Glucose (UA) (Negative) Urine Ketones (Negative) Urine Occult Blood (Negative) Urine Nitrite (Negative) Urine Bilirubin (Negative) Urine Urobilinogen (0.2-1.0) Ur Leukocyte Esterase (Negative) Urine RBC (0-5) /hpf Urine WBC (0-5) /hpf Ur Squamous Epith Cells (0-5) /hpf Urine Bacteria (FEW) /hpf Urine Mucus (FEW) /hpf Influenza Type A RNA (NEGATIVE) RSV RNA (INAAT) (NEGATIVE) Influenza Type B RNA (NEGATIVE) SARS-CoV-2 RNA (DEANGELO) (NEGATIVE) Meds: Medications Generic Name Dose Route Start Last Admin Trade Name Freq PRN Reason Stop Dose Admin Diphenhydramine HCl 50 mg 04/22/21 12:15 Diphenhydramine 50 Mg/Ml Sdv IVPUSH ASDIRECTED PRN hypersensitivity reaction Epinephrine HCl 0.3 mg 04/22/21 12:15 Epinephrine 1 Mg/Ml Sdv IM ASDIRECTED PRN hypersensitivity reaction Famotidine 20 mg 04/22/21 12:15 Famotidine 20 Mg/2 Ml Sdv IVPUSH ASDIRECTED PRN hypersensitivity reaction Methylprednisolone Sodium Succinate 125 mg 04/22/21 12:15 Methylprednisolone Sodium Succinate 125 Mg/2 Ml Sdv IVPUSH ASDIRECTED PRN hypersensitivity reaction Sodium Chloride 10 ml 04/22/21 11:20 04/22/21 11:33 Sodium Chloride 0.9% 10 Ml Syringe FLUSH 10 ml ASDIRECTED PRN Administration Keep Vein Open Sodium Chloride 30 ml 04/22/21 12:15 Sodium Chloride 0.9% 10 Ml Syringe FLUSH ASDIRECTED NIGEL Discontinued Medications Generic Name Dose Route Start Last Admin Trade Name Freq PRN Reason Stop Dose Admin Sodium Chloride 1,000 mls @ 999 mls/hr 04/22/21 11:22 04/22/21 11:33 Normal Saline IV 04/22/21 12:22 999 mls/hr ONETIME ONE Administration CASIRIVIMAB/IMDEVIMAB 10 ml/ 110 mls @ 220 mls/hr 04/22/21 12:15 04/22/21 13:30 Sodium Chloride IV 04/22/21 12:44 220 mls/hr ONETIME ONE Administration Ondansetron HCl 4 mg 04/22/21 11:22 04/22/21 11:33 Ondansetron 4 Mg/2 Ml Sdv IVPUSH 04/22/21 11:23 4 mg ONETIME ONE Administration - Re-Assessments/Exams Free Text/Narrative Re-Assessment/Exam: 04/22/21 11:35 Patient presents to the ER for her multiple symptoms, COVID/flu/RSV swab was obtained at the time of triage, we will do a chest x-ray, get some basic labs give her some fluids and some nausea meds and see if this helps relieve some of her symptoms. 04/22/21 12:14 Patient did test positive for COVID-19. Due to the patient's body habitus, and comorbidities she does screen in for monoclonal antibodies. I spoke with the patient to provide information about monoclonal antibody treatment. I offered them the "Patient and caregiver EUA monoclonal antibody fact sheet" to read and review. I stated that the drug has been approved by an emergency use authorization (EUA) process and has not been fully FDA reviewed or approved. The patient meets the EUA requirements. I discussed there are other potential treatment options that are currently not FDA approved to treat COVID-19. I did offer an opportunity to ask questions and all questions were answered. The patient voiced understanding and agreed to proceed with the treatment. Departure - Departure Time of Disposition: 14:30 Disposition: Home, Self-Care 01 Condition: Good Clinical Impression: COVID-19 - Discharge Information *PRESCRIPTION DRUG MONITORING PROGRAM REVIEWED*: No *COPY OF PRESCRIPTION DRUG MONITORING REPORT IN PATIENT SLY: No Instructions: 10 Things You Can Do to Manage Your COVID-19 Symptoms at Home - [facility] (10/27/2020[facility] Referrals: PCP,Not In Area [Primary Care Provider] - Forms: ED Department Discharge Additional Instructions: You were seen in the ER today for ongoing and/or worsening respiratory symptoms. Your chest x-ray showed no signs of pneumonia at this time. You did test positive for COVID-19 at today's visit. You were given IV monoclonal antibody therapy at today's visit, this medication is thought to work by making you a little less sick, and helps to decrease the length of time that you are sick. Please try to increase your oral fluid intake, and eat multiple small meals throughout the day, to keep yourself healthy. You need to keep yourself nourished in order to fight off this disease. You can try a liquid diet like gatorade/powerade as well to get your electrolytes. You may take 500 mg Tylenol every hours 6 hours for pain/fever relief. Do not exceed 4000 mg Tylenol in a 24-hour time span. However, running a fever is your body's natural response to illness, and it allows the body to develop antibodies to disease, we are recommending trying to limit the use of Tylenol as much as possible to allow your body's natural immune response. Recommend you obtain a pulse oximeter and monitor your oxygen levels at home, you should place the monitor on your finger, and sit in a calm, quiet position for a few minutes and then record the number that is on the screen. If this consistently below 90% on room air without movement, this would be cause for concern to come back to the hospital for further management of your COVID-19 disease. Current CDC guidelines are that you quarantine/isolate for the first 5 days from symptom onset; and then you may leave the house on last 5 days if you are masked. Sepsis Event Note (ED) - Focused Exam Vital Signs: Vital Signs Temp Pulse Resp BP Pulse Ox 04/22/21 11:20 96.9 F 84 18 142/71 H 95 - My Orders Last 24 Hours: My Active Orders 04/22/21 11:20 Sodium Chloride 0.9% [Saline Flush] 10 ml FLUSH ASDIRECTED PRN Peripheral IV Insertion Adult [OM.PC] Routine 04/22/21 11:21 Peripheral IV Care [RC] . DIRECTED 04/22/21 11:23 Chest 1V Frontal [CR] Stat 04/22/21 12:15 Vital Signs [RC] Q15M EPINEPHrine [Adrenalin] 0.3 mg IM ASDIRECTED PRN Famotidine [Pepcid] 20 mg IVPUSH ASDIRECTED PRN Sodium Chloride 0.9% [Saline Flush] 30 ml FLUSH ASDIRECTED diphenhydrAMINE [Benadryl] 50 mg IVPUSH ASDIRECTED PRN methylPREDNISolone Sod Succ [Solu-MEDROL] 125 mg IVPUSH ASDIRECTED PRN - Assessment/Plan Last 24 Hours: My Active Orders 04/22/21 11:20 Sodium Chloride 0.9% [Saline Flush] 10 ml FLUSH ASDIRECTED PRN Peripheral IV Insertion Adult [OM.PC] Routine 04/22/21 11:21 Peripheral IV Care [RC] . DIRECTED 04/22/21 11:23 Chest 1V Frontal [CR] Stat 04/22/21 12:15 Vital Signs [RC] Q15M EPINEPHrine [Adrenalin] 0.3 mg IM ASDIRECTED PRN Famotidine [Pepcid] 20 mg IVPUSH ASDIRECTED PRN Sodium Chloride 0.9% [Saline Flush] 30 ml FLUSH ASDIRECTED diphenhydrAMINE [Benadryl] 50 mg IVPUSH ASDIRECTED PRN methylPREDNISolone Sod Succ [Solu-MEDROL] 125 mg IVPUSH ASDIRECTED PRN
[2021-04-22 12:04] LABS: CORONAVIRUS COVID-19 NAA POSITIVE (NEGATIVE)
[2021-04-22] MEDS ORDERED: EPINEPHrine 1 MG/ML SDV IM PRN (12:15)
[2021-04-22] MEDS ORDERED: Sodium Chloride 0.9% 10 ML Syringe FLUSH SCH (12:15)
[2021-04-22] MEDS ORDERED: diphenhydrAMINE 50 MG/ML SDV IVPUSH PRN (12:15)
[2021-04-22] MEDS ORDERED: methylPREDNISolone Sodium Succinate 125 MG/2 ML SDV IVPUSH PRN (12:15)
[2021-04-22] MEDS ORDERED: Famotidine 20 MG/2 ML SDV IVPUSH PRN (12:15)
--- NOTE | 2021-04-23 09:21 | CR ---
EXAM: XR CHEST 1 VIEW LOCATION: [facility] DATE/TIME: 04/22/2021 12:25 PM INDICATION: Shortness of breath. Suspected Covid infection. COMPARISON: None. IMPRESSION: Heart size magnified in AP projection with normal vascularity. Shallow inspiration. No focal consolidation, pneumothorax nor pleural effusion. SIGNED BY: Marty Grimes MD 04/22/2021 1:49 PM [email or web address]
== END 2021-04-22 15:38 | disposition home or self-care (01) ==
LOC: JD.ED 10:53
DX: U07.1 COVID-19 (principal); E11.9 Type 2 diabetes mellitus without complications; I11.0 Hypertensive heart disease with heart failure; I50.9 Heart failure, unspecified; E78.00 Pure hypercholesterolemia, unspecified; Z88.5 Allergy status to narcotic agent; Z88.8 Allergy status to other drugs, medicaments and biological substances; Z79.899 Other long term (current) drug therapy; Z79.82 Long term (current) use of aspirin; Z79.84 Long term (current) use of oral hypoglycemic drugs
CPT/HCPCS: 0241U; 36415; 71045; 80053; 81001; 83735; 85025; 86140; 96374; 99285; J2405; J7030; M0243; Q0243